=== PATIENT | female | born 1985 | race Caucasian/White ===

== ENCOUNTER 2025-04-17 10:56 | Outpatient (CLI) | payer OTHER, SELFPAY | END 2025-04-17 10:57 | disposition home or self-care (01) | PROVIDERS: Visit Provider Family Medicine | DX: Z11.59 Encounter for screening for other viral diseases (principal); Z76.89 Persons encountering health services in other specified circumstances; Z78.9 Other specified health status | CPT/HCPCS: 80053; 80061; 82306; 82607; 86803 ==